=== PATIENT | female | born 1995 | race Caucasian/White ===

== ENCOUNTER → 2019-04-28 | Emergency (ER) | payer OTHER ==
[~2019-04-28] VITALS: Ht 154.9 cm; Wt 63.5 kg
[~2019-04-28] MED LIST: MACROBID100 M1 PO; PRENATABS RX T1 EACH PO
[2019-04-28 21:27] LABS: BILIRUBIN NEGATIVE (NEGATIVE); BLOOD 3+ (NEGATIVE); CLARITY CLEAR (CLEAR); COLOR YELLOW (YELLOW); GLUCOSE NEGATIVE (NEGATIVE); KETONE NEGATIVE (NEGATIVE); LEUKO ESTERASE NEGATIVE (NEGATIVE); NITRITE NEGATIVE (NEGATIVE); SPECIFIC GRAVITY >= 1.030 (1.005-1.030); UROBILINOGEN 0.2 E.U./dl (0.2-1.0)
[2019-04-28 21:39] LABS: EPITHELIAL CELLS TNTC
[2019-04-28 21:40] LABS: BACTERIA 1+
[2019-04-28 21:40] LABS: BASO % 0.3 % (0.0-1.0); EOS % 0.3 % (1.0-4.0); HEMATOCRIT 35.3 % (37.0-47.0); HEMOGLOBIN 11.4 g/dl (12.0-16.0); LYMPH # 2.7 10*3/uL (1.3-4.4); LYMPH % 21.7 % (27.0-41.0); MEAN CELL VOLUME 78.8 fl (81.0-99.0); MEAN CORPUSCULAR HGB 25.4 pg (27.0-31.0); MEAN CORPUSCULAR HGB CONC 32.3 g/dl (33.0-37.0); MEAN PLATELET VOLUME 9.3 fl (9.6-12.3); MONO # 0.6 10*3/uL (0.1-1.0); MONO % 4.8 % (3.0-9.0); NEUT # 9.1 10*3/uL (2.3-7.9); NEUT % 72.3 % (47.0-73.0); PLATELET COUNT AUTOMATED 281 10*3/uL (130-400); RED BLOOD COUNT 4.48 10*6/uL (4.10-5.10); RED CELL DISTRI WIDTH 14.7 % (0-14.5); WHITE BLOOD COUNT 12.6 10*3/uL (4.8-10.8)
[2019-04-28 21:51] LABS: ACT PARTIAL THROMBO TIME 28.2 SECONDS (20.0-32.1)
[2019-04-28 21:55] LABS: ALBUMIN 2.9 gm/dl (3.1-4.5); ALKALINE PHOSPHATASE 79 U/L (45-117); BUN 6 mg/dl (7-24); CHLORIDE 107 mmol/L (98-107); CREATININE 0.56 mg/dL (0.55-1.02); POTASSIUM 3.5 mmol/L (3.5-5.1); SGOT/AST 6 IU/L (3-35); SGPT/ALT 8 U/L (12-78); SODIUM 138 mmol/L (136-145); TOTAL PROTEIN 7.3 gm/dL (6.4-8.2)
[2019-04-28 23:08] LABS: URINE AMPHETAMINES < 1000 (1000ng/ml); URINE BARBITURATES < 200 (200ng/ml); URINE BENZODIAZEPINES < 200 (200ng/ml); URINE CANNABINOIDS (THC) < 50 (50ng/ml); URINE COCAINE < 300 (300ng/ml); URINE METHADONE < 300 (300ng/ml); URINE OPIATES < 300 (300ng/ml)
[2019-04-28 23:11] LABS: URINE PHENCYCLIDINE < 25 (25ng/ml)
== END ==
LOC: ED 19:55
PROVIDERS: Emergency Medicine Emergency Medical Services
DX: O23.92 Unspecified genitourinary tract infection in pregnancy, second trimester (principal); O26.852 Spotting complicating pregnancy, second trimester; Z3A.20 20 weeks gestation of pregnancy; Z88.0 Allergy status to penicillin